=== PATIENT | male | born 1990 | race Caucasian/White ===

== ENCOUNTER 2023-05-17 15:23 | Emergency (ER) | payer SELFPAY ==
[2023-05-17 15:24] VITALS: BP 154/111; PULSE 101; RESP 18; TEMP 36.2; O2SAT 99; BMI 37.5
--- NOTE | 2023-05-17 15:42 | EKG12_ITS ---
Test Reason : ABD PAIN Blood Pressure : / mmHG Vent. Rate : 086 BPM Atrial Rate : 086 BPM P-R Int : 140 ms QRS Dur : 090 ms QT Int : 360 ms P-R-T Axes : 044 006 002 degrees QTc Int : 430 ms Normal sinus rhythm Normal ECG Confirmed by NATHAN MAN, ATUL ([id number]), department editor JUAN DANIEL GONZALES ([id number]) on 05/19/2023 9:55:59 AM Referred By: Confirmed By:ATUL EVANS MD
--- NOTE | 2023-05-17 15:43 | EDS_ITS ---
HPI History of Present Illness Chief Complaint: Abd Pain Informant: patient Onset/Context/Timing Onset: Days (3 days) Context: Sudden Onset Timing: Intermittent and Lasts (Less than 5 seconds) Current Severity: Gone Maximum Severity: Severe Narrative Narrative: Patient presents secondary to intermittent severe abdominal pain. He states for the past 3 days he will have intermittent pain in the high epigastric area that lasts 2 to 4 seconds at a time and then resolves. It does not seem to be related to food. He states he does feel better if his abdomen is flexed and it is worse when he is extended. He has not felt any masses. He states pushing on the area does not recreate the pain. While he does have a history of acid reflux at times he states he has not had those symptoms recently and certainly not with these episodes of pain. He has been having hot flashes at night with sweats and chills. He did not measure his temperature. [facility] Medical History (Updated 05/17/23 @ 17:[address] Cecilia England MD) Hx of gastroesophageal reflux (GERD) Home Medications dicyclomine 20 mg tablet 20 mg PO TID #20 tabs 05/17/23 [Rx Last Taken Unknown] levofloxacin 750 mg tablet 750 mg PO DAILY 4 days #4 tabs 05/17/23 [Rx Last Taken Unknown] pantoprazole 40 mg tablet,delayed release (Protonix) 40 mg PO DAILY #30 tabs 05/17/23 [Rx Last Taken Unknown] Allergy/AdvReac Type Severity Reaction Status Date / Time bee pollen Allergy Swelling Verified 05/17/23 15:24 Penicillins [PCN] Allergy Unknown Verified 05/17/23 15:24 Social History Smoking Status: Never smoker ROS ROS ED Constitutional Constitutional ED: Reports chills, fever(s), subjective and sweats Eyes Eyes: Denies change in vision or discharge from eye(s) ENT ENT ED: Denies discharge from eye(s), rhinorrhea or sore throat Cardiovascular Cardiovascular: Denies chest pain or palpitations Respiratory/Chest Respiratory/Chest: Denies cough or dyspnea Gastrointestinal Gastrointestinal: Reports abdominal pain; Denies diarrhea, nausea or vomiting Genitourinary Genitourinary ED: Denies dysuria Musculoskeletal Musculoskeletal: Denies back pain or extremity pain Integumentary Denies Abrasions or rash Neurologic Neurologic: Denies headache(s) or weakness Psychiatric Psychiatric: Denies anxiety or depression Allergic/Immunologic Allergic/Immunologic ED: Denies lip swelling or urticaria EXAM Physical Exam Const Vital Signs: 05/17/23 15:24 Temperature 97.1 F L Temperature Source Temporal Pulse Rate 101 H Respiratory Rate 18 Blood Pressure 154/111 H Blood Pressure Mean 125 Pulse Ox 99 Oxygen Delivery Method Room Air Positive well nourished and well developed General Appearance ED: well developed HEENT Reports moist mucous membranes Eyes EOMs intact bilaterally Chest Wall inspection of chest normal and palpation of chest normal Resp normal respiratory effort and clear to auscultation bilaterally Cardio regular rate and regular rhythm GI GI Narrative: Abdomen soft with no reproducible tenderness at this time. Hypoactive but present bowel sounds noted. Extremity normal to inspection Neuro oriented x3 and no sensory deficits noted Motor Exam: strength 5/5 throughout Psych mental status grossly normal Skin no rashes or lesions noted MDM MDM MDM Narrative Medical decision making narrative: Patient placed on phototypesetting equipment monitor. EKG obtained to evaluate for cardiac arrhythmia/ischemia. IV line established. Labwork obtained to evaluate for leukocytosis, anemia, and electrolyte derangement. Patient given a dose of IV Protonix. History & Record Review Discussion w/independent historian: Patient Lab Data Attestation: I reviewed the patient's lab results. Labs: Laboratory Results - last 24 hr 05/17/23 15:46 WBC 7.5 RBC 5.49 Hgb 15.3 Hct 43.6 MCV 79.4 L MCH 27.9 MCHC 35.1 RDW Std Deviation 35.7 RDW Coeff of Linda 12.4 Plt Count 214 MPV 9.8 Immature Gran % (Auto) 0.400 Neut % (Auto) 70.5 H Lymph % (Auto) 19.5 Floyd % (Auto) 8.0 Eos % (Auto) 1.1 Baso % (Auto) 0.5 Absolute Neuts (auto) 5.3 Absolute Lymphs (auto) 1.47 Nucleated RBC % 0 Sodium 136 Potassium 3.6 Chloride 104 Carbon Dioxide 27.0 Anion Gap 5 BUN 14 Creatinine 1.11 Estim Creat Clear Calc 103.89 Est GFR (MDRD) Af Amer 98 Est GFR (MDRD) Non-Af 81 BUN/Creatinine Ratio 12.6 Glucose 142 H Calcium 9.0 Total Bilirubin 0.90 Direct Bilirubin 0.18 AST 23 ALT 35 Alkaline Phosphatase 71 Total Protein 8.1 Albumin 3.9 Globulin 4.2 Lipase 27 Radiography Diagnostic Testing: Clinical Impression(s) from Imaging Studies Abdomen/Pelvis CT 05/17/23 16:13 IMPRESSION: Distal gastric wall thickening suggests possible inflammatory process such as gastritis or ulcer disease. Follow-up recommended. Right lower lobe consolidation and minimal right pleural effusion consistent with pneumonia. Electronically Signed: Che Hardin MD at 16:54 EST , EKG Initial EKG: Attestation: I personally reviewed and interpreted this EKG as follows: Interpretation: Sinus Rhythm (Sinus 86 bpm with no acute ischemia.) Treatment and Re-Evaluation :: CBC was normal white count 7.5 with 70% neutrophils. Chemistry studies unremarkable. LFTs and lipase are normal. CT the abdomen pelvis with IV contrast obtained. This reveals distal gastric wall thickening suggestive of inflammatory process such as gastritis or ulcer disease. He also has evidence of a right lower lobe consolidation consistent with pneumonia. Test results discussed with the patient. He has severe intermittent pain may be spasm of the inferior esophagus in attempt to prevent reflux. I will write him Levaquin for his pneumonia as well as Protonix and Bentyl to help with the gastric acid and spasm. I will refer him to surgery for potential EGD. Instructions given. Discharge Plan Triage Chief Complaint: Abd Pain ED Provider: Cecilia England Dx/Rx/DC Orders Clinical Impression: Gastritis, Pneumonia Instructions: ED Gastritis (Adult), ED Pneumonia (Adult) Prescriptions: New pantoprazole [Protonix] 40 mg tablet,delayed release (DR/EC) 40 mg PO DAILY Qty: 30 0RF dicyclomine 20 mg tablet 20 mg PO TID Qty: 20 0RF levofloxacin 750 mg tablet 750 mg PO DAILY 4 Days Qty: 4 0RF Primary Care Provider: Care Physician,No Primary Referrals: Genesis Angel MD [Med Staff - Active Staff] - As Needed Care Physician,No Primary [Primary Care Provider] - Disposition Disposition: Home, Self Care
[2023-05-17 15:56] LABS: Absolute Lymphocyte Count 1.47 X10^3/uL (0.83-4.51); Absolute Neutrophil Count 5.3 X10^3/uL (2.0-7.7); Basophil# 0.04 X10^3/uL; Basophil% 0.5 % (0-1); Eosinophil# 0.08 X10^3/uL; Eosinophils% 1.1 % (0-5); Hematocrit 43.6 % (40-54); Hemoglobin 15.3 g/dL (13.0-16.5); Lymphocyte # 1.47 X10^3/ul (0.83-4.51); Lymphocyte % 19.5 % (19-41); Mean Corp Hgb Conc 35.1 g/dL (32-36); Mean Corpuscular Hgb 27.9 pg (27.0-32.0); Mean Corpuscular Volume 79.4 fL (80-94); Mean Platelet Vol. 9.8 fl (6.2-12.0); NRBC Flagged by Analyzer 0 % (0-5); Neutrophil % 70.5 % (47-70); Platelet Count 214 K/mm3 (150-450); RBC Distribution Width CV 12.4 % (11.6-14.6); RBC Distribution Width SD 35.7 fl (35.1-43.9); Red Blood Count 5.49 M/mm3 (4.6-6.2); White Blood Count 7.5 K/mm3 (4.4-11.0)
[2023-05-17 16:12] LABS: AST(SGOT) 23 U/L (15-37); Alanine Aminotransfer ALT/SGPT 35 U/L (16-61); Albumin, Serum 3.9 g/dL (3.2-5.0); Alkaline Phosphatase 71 U/L (45-117); Anion Gap 5 (5-15); BUN 14 mg/dL (7-18); BUN/Creat Ratio 12.6 RATIO (10-20); Bilirubin, Direct 0.18 mg/dL (0.00-0.30); Chloride 104 mmol/L (98-107); Creatinine, Serum 1.11 mg/dL (0.70-1.30); EST Glomerular Filtration Rate 81 mL/min (>60); Est Glom Filt Rate - Afr Amer 98 mL/min (>60); Estimated Creatinine Clearance 103.89 ml/min; Globulin 4.2 g/dL (2.2-4.2); Glucose 142 mg/dL (74-106); Lipase 27 U/L (13-75); Potassium 3.6 mmol/L (3.5-5.1); Protein, Total 8.1 g/dL (6.4-8.2); Sodium Level 136 mmol/L (136-145)
--- NOTE | 2023-05-17 16:13 | CT_ITS ---
EXAM: CT Abdomen And Pelvis W/ Contrast Injection HISTORY: epigastric pain TECHNIQUE: Routine protocol CT abdomen pelvis. IV Contrast: IV 100mL [id number] . Oral Contrast: without. Sagittal and coronal images were reconstructed. RADIATION DOSAGE (If Supplied By Facility): CTDIvol = ( 16.98 ) mGy, DLP = ( 2737.03 ) mGycm Individualized dose optimization techniques were used for this CT. COMPARISON: None. LIMITATIONS: None. FINDINGS: LOWER CHEST: Consolidation in the right lower lobe. Minimal right pleural effusion. LIVER: Unremarkable. GALLBLADDER/BILE DUCTS: Unremarkable. PANCREAS: Unremarkable. SPLEEN: Unremarkable. ADRENAL GLANDS: Unremarkable. KIDNEYS / URETERS: Unremarkable. BOWEL / MESENTERY: Wall thickening distal gastric antrum possibly exaggerated by suboptimal distention. No bowel obstruction. APPENDIX: Identified and normal. No evidence of acute appendicitis. PERITONEUM: No free air. No free fluid. VESSELS: Abdominal aorta is normal caliber. RETROPERITONEUM: Unremarkable. REPRODUCTIVE ORGANS: Unremarkable. BLADDER: Unremarkable. ABDOMINAL WALL: Unremarkable. BONES: No acute abnormality. OTHER: None. CT/Abdomen/Pelvis W IV Cont ONLY IMPRESSION: Distal gastric wall thickening suggests possible inflammatory process such as gastritis or ulcer disease. Follow-up recommended. Right lower lobe consolidation and minimal right pleural effusion consistent with pneumonia. Electronically Signed: Che Hardin MD at 16:54 EST ,
[2023-05-17] MEDS: Pantoprazole Sodium 40 MG in 0.9% Normal Saline (100mL MB+) 100 ML 330 MG IV (16:14)
[2023-05-17] MEDS: 0.9% Normal Saline (1000mL) 1,000 ML 150 ML IV (16:14)
[2023-05-17] MEDS: Dicyclomine 10 MG Capsule 20 MG PO (17:29)
[2023-05-17] MEDS: levoFLOXacin 750 MG Tablet PO (17:29)
[2023-05-17 17:35] VITALS: BP 124/96; PULSE 72; RESP 16; O2SAT 98
== END 2023-05-17 17:36 | disposition home or self-care (01) ==
PROVIDERS: Emergency Provider Emergency Medicine; Visit Provider Emergency Medicine
DX: J18.9 Pneumonia, unspecified organism (principal); K29.70 Gastritis, unspecified, without bleeding; K21.9 Gastro-esophageal reflux disease without esophagitis; Z79.899 Other long term (current) drug therapy
CPT/HCPCS: 74177; 80048; 80076; 83690; 85025; 93005; 96361; 96365; 99285; J7030; Q9967; A4216